=== PATIENT | male | born 1965 | race Two or more races ===

== ENCOUNTER 2017-03-12 13:33 | Emergency (ER) | payer OTHER | END 2017-03-12 14:05 | disposition home or self-care (01) | LOC: CFTX 13:33 | DX: L02.414 Cutaneous abscess of left upper limb (principal) | CPT/HCPCS: 10060; 99283 ==

== ENCOUNTER 2017-03-14 12:50 | Emergency (ER) | payer OTHER | END 2017-03-14 13:00 | disposition home or self-care (01) | LOC: CFTX 12:50 | DX: Z48.03 Encounter for change or removal of drains (principal); R03.0 Elevated blood-pressure reading, without diagnosis of hypertension; F17.210 Nicotine dependence, cigarettes, uncomplicated | CPT/HCPCS: 99281 ==